=== PATIENT | male | born 2000 | race Caucasian/White ===

== ENCOUNTER 2023-12-23 20:06 | Observation (INO) ==
[2023-12-23 21:10] LABS: Basophils # (auto) 0.08 K/uL (0.00-0.20); Basophils % (auto) 0.8 %; Eosinophils # (auto) 0.26 K/uL (0.00-0.50); Eosinophils % (auto) 2.8 %; Hematocrit (blood only) 47.2 % (42.0-52.0); Hemoglobin 16.5 g/dl (14.0-18.0); Immature Granulocytes # (auto) 0.07 K/uL (0.01-0.20); Immature Granulocytes % (auto) 0.7 %; Lymphocytes # (auto) 2.21 K/uL (1.20-3.40); Lymphocytes % (auto) 23.4 %; Mean Corpuscular Hemoglobin 30.1 pg (25.0-34.0); Mean Corpuscular Volume 86.1 fL (80.0-100.0); Mean Platelet Volume 10.9 fL (9.4-12.4); Monocytes # (auto) 0.76 K/uL (0.11-0.59); Neutrophils # (auto) 6.07 K/uL (1.40-6.50); Neutrophils % (auto) 64.3 %; Platelet Count 253 K/uL (130-400); RDW Coefficient of Variation 12.1 % (11.5-14.5); RDW Standard Deviation 38.3 fL (36.4-46.3); Red Blood Count 5.48 M/uL (4.70-6.10); White Blood Count 9.45 K/ul (4.8-10.8)
--- NOTE | 2023-12-23 21:12 | Emergency Department Note ---
History of Present Illness General Chief complaint: Infection Stated complaint: CELLULITIS ON LT RING FINGER Time Seen by Provider: 12/23/23 20:50 History of Present Illness Maximum Pain Intensity: 4 This is a 23-year-old male who presents to the emergency department via private vehicle with complaints of "cellulitis on the left ring finger". He is right- hand dominant. Patient notes that he was here in the ED and had a laceration repaired via sutures. He notes he was doing well until about 2-3 days ago. He began with swelling and redness as well as drainage from the left fourth digit. He denies any additional trauma or injury. He notes a yellowish-pink fluid oozing from the wound. Current pain 2/10. However he notes that just prior to arrival when he was at [facility] they attempted to remove a suture and the pain was a 9/10. Current pain 4/10. Patient denies any pertinent past medical history, surgeries or allergies. No current antibiotic use. Patient referred today by [facility]. Home Medications Medication Instructions Recorded Confirmed Type No Known Home Medications 12/23/23 12/23/23 History Allergies Allergy/AdvReac Type Severity Reaction Status Date / Time pollen extracts Allergy Intermediate ITCHY Verified 12/23/23 21:56 EYES, SNEEZING, CONGESTION Past Med/Surg History Medical History No pertinent past medical history Surgical History No pertinent past surgical history Social History Smoking Status: Current every day smoker Tobacco Type: E-cigarettes / Vaping Preferred Language: Macedonian Feels Safe at Home: Yes Review of Systems A total of 10 systems reviewed and were otherwise negative Physical Exam Vital Signs Vital Signs - 24 hr 12/23/23 20:30 12/23/23 21:21 12/23/23 22:51 Temperature 37.4 C Temperature Source Temporal Artery Scan Pulse Rate 73 68 Pulse Rate [Finger] 76 Pulse Rhythm [Finger] Regular Pulse Strength [Finger] Normal Respiratory Rate 16 20 Respiratory Effort / Characteristics Non-Labored Spontaneous Non-Labored Spontaneous Respiratory Depth Normal Normal Blood Pressure 169/95 H Blood Pressure [Right Arm] 178/80 H Blood Pressure Mean 119 Blood Pressure Mean [Right Arm] 112 Blood Pressure Position Sitting Blood Pressure Position [Right Arm] Sitting Pulse Oximetry 97 99 Oxygen Delivery Method Room Air Room Air Sepsis Recent Fever Within 48 Hours No Sepsis New/Unexplained Change in Mental Status N/A Sepsis Action Taken by Nursing No Action Required VITAL SIGNS - Vital signs and nursing notes were reviewed. Hypertensive, otherwise stable and afebrile. GENERAL -23-year-old male appearing his stated age who is in no acute distress. Communicates well with provider and answers questions appropriately. SKIN -distal aspect of the left fourth digit in a curvilinear distribution on the finger pad reveals a sutured wound with small amount of overlying scabbing. There is circumferential edema and erythema to the distal left fourth digit extending just distal to the PIP joint. The sutured wound does have evidence of purulence just deep to the sutures as evidenced by a yellowish hue in what appeared to be small pockets. HEAD - NC/AT. EYES - Sclera anicteric. NECK - No nuchal rigidity. LUNGS - CTA CARDIAC - RRR EXTREMITIES -left fourth digit skin as above. Patient is tender throughout the flexor tendon region overlying the finger pad of left fourth digit extending through the DIP joint and into the space between the PIP and DIP joint on the volar aspect. Patient is not able to flex at the left fourth digit DIP joint actively. He is able to extend at the left fourth digit. He is exquisitely tender overlying the wound of the left fourth digit. There is a small amount of purulence at the sutured region. There is no crepitus. No necrosis. Capillary refill of the left fourth digit within normal limits. NEUROLOGIC -patient is neurovascularly intact throughout the left fourth digit without deficit PSYCH - A&O, and cooperates fully with examiner. Pt is very pleasant and interacts well with examiner. Course Administered Medications Acetaminophen (Acetaminophen 325 Mg Tab) 650 mg PO Q4H PRN PRN Reason: pain/fever Stop: 01/22/24 23:10 Last Admin: 12/23/23 23:40 Dose: 650 mg Documented By: MADDY Discontinued Medications Ceftriaxone Sodium (Rocephin) 2,000 mg in 50 mls @ 100 mls/hr IV NOW STA Stop: 12/23/23 22:38 Last Infusion: 12/23/23 23:45 Dose: Infused Documented By: Admin: 12/23/23 22:45 Dose: 100 mls/hr Documented By: KAMILLA Ibuprofen (Ibuprofen 600 Mg Tab) 600 mg PO ONE STA Stop: 12/23/23 23:37 Last Admin: 12/24/23 00:31 Dose: 600 mg Documented By: MARLENE Medical Decision Making Laboratory Data 12/23/23 20:48 12/23/23 20:48 Lab Results 12/23/23 Range/Units 20:48 WBC 9.45 (4.8-10.8) K/ul RBC 5.48 (4.70-6.10) M/uL Hgb 16.5 (14.0-18.0) g/dl Hct 47.2 (42.0-52.0) % MCV 86.1 (80.0-100.0) fL MCH 30.1 (25.0-34.0) pg MCHC 35.0 (32.0-36.0) g/dL RDW Std Deviation 38.3 (36.4-46.3) fL RDW Coeff of Antonio 12.1 (11.5-14.5) % Plt Count 253 (130-400) K/uL MPV 10.9 (9.4-12.4) fL Immature Gran % (Auto) 0.7 % Neut % (Auto) 64.3 % Lymph % (Auto) 23.4 % Haines % (Auto) 8.0 % Eos % (Auto) 2.8 % Baso % (Auto) 0.8 % Neut # (Auto) 6.07 (1.40-6.50) K/uL Lymph # (Auto) 2.21 (1.20-3.40) K/uL Haines # (Auto) 0.76 H (0.11-0.59) K/uL Eos # (Auto) 0.26 (0.00-0.50) K/uL Baso # (Auto) 0.08 (0.00-0.20) K/uL Immature Gran # (Auto) 0.07 (0.01-0.20) K/uL Sodium 140 (136-145) mmol/L Potassium 4.0 (3.5-5.1) mmol/L Chloride 107 (98-107) mmol/L Carbon Dioxide 27 (21-32) mmol/L Anion Gap 6 (3-11) BUN 14 (6-23) mg/dl Creatinine 1.01 (0.6-1.4) mg/dl Est Cr Clr Drug Dosing 134.5 ml/min Est GFR ( Amer) 122.7 ml/min Est GFR (Non-Af Amer) 105.8 ml/min BUN/Creatinine Ratio 13.9 (10-20) Glucose 93 (70-99(Fasting)) mg/dl Calcium 9.3 (8.6-10.3) mg/dl Total Bilirubin 0.4 (0.2-1.0) mg/dl AST 22 (13-39) U/L ALT 27 (7-52) U/L Alkaline Phosphatase 87 (34-104) U/L Total Protein 6.8 (6.0-8.3) gm/dl Albumin 4.5 (3.4-5.0) gm/dl Globulin 2.3 L (2.5-4.0) gm/dl Albumin/Globulin Ratio 2.0 (0.9-2) Imaging Data My Impression: Left fourth digit edematous at the distal aspect. No radiopaque foreign body. No fracture or dislocation. No erosions. MDM Narrative Patient was seen and evaluated as above in room C08. Review was performed of triage nursing notes and vital signs. I did review pertinent previous visits and patient history. After obtaining a thorough history and physical examination the above work up was performed. Patient presents to us today for evaluation of an infection to the left fourth digit. This is at the location of a repaired wound with sutures in place. Options of care were discussed with the patient. IV access was established. Labs were drawn. No leukocytosis or concerning anemia. No emergent metabolic disturbance. X-ray was obtained. Per my interpretation: Left fourth digit edematous at the distal aspect. No radiopaque foreign body. No fracture or dislocation. No erosions. The formal radiology report will be available in the a.m. There is a small amount of purulence emanating from the wound channel which was obtained. I did order IV ceftriaxone for coverage of the infection. At 10:10 PM on 05/21/[address] Jackson of orthopedics. At this time we will proceed with inpatient management and IV antibiotics. He will see the patient in the a.m. Recommendation was to remove the sutures. Consent was obtained from the patient. Area was cleansed with sterile saline and dried with sterile gauze. Sutures were removed. Patient respectfully declined pain medication. Large amount of purulence poured from the wound when the sutures were removed. Area then further cleansed with sterile saline. Area was then dried with sterile gauze. Single-layer sterile Adaptic dressing was applied followed by sterile gauze. Care was taken so as not apply too tightly. Additional culture was sent and is to replace the first sample. Case discussed with the hospitalist service. Please refer to further documentation regarding his stay. Additional antibiotic therapy per hospitalist service. While in the department, I personally reevaluated the patient and the patient was found to be resting comfortably. The patient was educated upon management, educated upon todays findings/results, educated upon importance of follow up from today's visit, educated upon symptoms in which to return, had questions answered prior to discharge, verbalized understanding, and was discharged home in good condition. GCS: 15 In the evaluation and treatment of this patient the following differential diagnoses were entertained: Cellulitis, abscess, felon, paronychia, among others. Impression & Plan Cellulitis of finger of left hand, Infection involving suture with abscess Discharge Plan Visit Data Chief Complaint: Infection Stated Complaint: CELLULITIS ON LT RING FINGER ED Provider: Ilda Calixto ED Midlevel Provider: Mark Rolon Discharge Problem: Cellulitis of finger of left hand, Infection involving suture with abscess Patient Disposition: Admitted As Inpatient Condition: Good Discharge Instructions Interventions: ED Discharge Assessment Last Done: 12/24/23 00:16
[2023-12-23 21:24] LABS: Albumin Level 4.5 gm/dl (3.4-5.0); BUN Creatinine Ratio 13.9 (10-20); Bilirubin,Total 0.4 mg/dl (0.2-1.0); Calcium 9.3 mg/dl (8.6-10.3); Creatinine Clr Calc Pharmacy 134.5 ml/min; Est GFR (African American) 122.7 ml/min; Est GFR (Non-African American) 105.8 ml/min; Globulin 2.3 gm/dl (2.5-4.0); Total Protein 6.8 gm/dl (6.0-8.3)
[2023-12-23] MEDS: cefTRIAXone SODIUM 2,000 MG/50 ML BAG IV STA (22:45)
--- NOTE | 2023-12-23 22:57 | History & Physical Report ---
Date of Service December 23, 2023 Assessment & Plan (1) Cellulitis of finger of left hand: Plan: Pt is a 23 yo male with no significant PMH presenting to the ER due to referral from [facility]. Left finger cellulitis - pt hemodynamically stable; no leukocytosis - all lab work WNL - finger xray unchanged from prior (12/12/2023) by my read - wound culture pending - s/p ceftriaxone given in ED; will continue coverage with cefazolin pending culture results - ortho consulted for further evaluation Diet: NPO at midnight VTE ppx: low risk; ambulation Code: full Dispo: med/surg History of Present Illness Chief Complaint: left finger infection Primary Care Provider: [facility] Pt is a 23 yo male with no significant PMH presenting to the ER due to referral from [facility]. Pt was recently seen in the ED 12/12/2023 for a left finger injury after a fall. He cut his finger on a piece of glass. He received 9 sutures at that time. He was offered antibiotics but did not take them at that time. He thought he would be able to keep the wound clean. Over the last few days, he started to notice his finger becoming infected. The wound became red and inflamed locally. It was also painful with flexion/pressure of his DIP joint. Yesterday, he noticed the wound start to leak clear/pink fluid. He denies any other symptoms. No nausea, vomiting, fevers, or chills. Allergies Allergy/AdvReac Type Severity Reaction Status Date / Time pollen extracts Allergy Intermediate ITCHY Verified 12/23/23 21:56 EYES, SNEEZING, CONGESTION Home Medications Medication Instructions Recorded Confirmed Type No Known Home Medications 12/23/23 12/23/23 History Past Med/Surg History Medical History No pertinent past medical history Surgical History No pertinent past surgical history Social History Smoking Status: Current every day smoker Tobacco Type: E-cigarettes / Vaping Hx Alcohol Use: Yes Hx Substance Use: No Preferred Language: Swazi Communication Ability: Effective Surgery Manager Required: No Current Living Situation: Other Current Living Situation Comment: lives in house with roommates Feels Safe at Home: Yes Safety Concerns: Feels Safe At This Time Assistive Devices: None Review of Systems Review of Systems: as per HPI Physical Exam Physical Exam: Constitutional: well appearing, no acute distress HEENT: normocephalic, no conjunctival injection CV: RRR, no murmur, no LE edema Respiratory: CTA bilaterally. No rhonchi, wheezes, or crackles. No increased work of breathing GI: soft, nondistended, nontender, + bowel sounds MSK: no gross deformities noted; refer to ER note for pictures of current left finger infection Skin: warm, dry, no rashes Neuro: alert, oriented, no FND noted Psych: mood and affect congruent Results & Data Results & Data Vital Signs (Past 12 Hours) Vital Signs Temp Pulse Pulse Resp BP BP Pulse Ox 12/23/23 22:51 76 20 178/80 H 99 12/23/23 21:21 68 12/23/23 20:30 37.4 C 73 16 169/95 H 97 O2 Del Method 12/23/23 22:51 Room Air 12/23/23 21:21 12/23/23 20:30 Room Air Supervising Physician Co-Signing Physician Notes Attending addendum: I have physically seen this patient, have supervised the medical residents activities, and agree with the H&P unless as otherwise noted. Assessment and Plan: Left fourth finger cellulitis- No suggestion of osteomyelitis on x-ray Wound culture and sensitivity pending Status post ceftriaxone given in the ED Continuing coverage with cefazolin IV Orthopedic surgery consult by the ED has already been performed N.p.o. after midnight for possible procedure in the a.m. Resident Activity Tracking Resident Involvement: Resident Care Provided Care Provided: Adult [facility] Medicine
[2023-12-23] MEDS ORDERED: MELATONIN 3 MG TAB PO PRN (23:11)
[2023-12-23] MEDS ORDERED: ONDANSETRON INJ 2 MG/ML 2 ML VIAL IV PRN (23:11)
[2023-12-23] MEDS: ACETAMINOPHEN 325 MG TAB PO PRN (23:40)
[2023-12-24] MEDS: IBUPROFEN 600 MG TAB PO STA (00:31)
[2023-12-24] MEDS: IBUPROFEN 600 MG TAB PO SCH (06:09)
--- NOTE | 2023-12-24 06:55 | XRay Report ---
LEFT FOURTH FINGER 3 VIEWS CLINICAL HISTORY: Fourth digit infection. FINDINGS: 3 views of the left fourth finger are compared to study dated 12/12/2023. The skeletal struc tures are well mineralized. No fracture is seen. The joint spaces are maintained. There is no bony er osion. Soft tissue swelling is noted in the distal fourth finger. A wound is seen in the distal finge r. There are tiny foci of soft tissue gas. No radiodense foreign body is identified. IMPRESSION: 1. No acute bony abnormality is identified. 2. Soft tissue edema and soft tissue gas is seen in the tip of the fourth finger with evidence of a w ound. Electronically signed by: Boni Temple M.D. 12/24/2023 6:54 AM
[2023-12-24 07:32] LABS: Hemoglobin 15.4 g/dl (14.0-18.0); Mean Corpuscular Hemoglobin 29.5 pg (25.0-34.0); Mean Corpuscular Hgb Conc 33.5 g/dL (32.0-36.0); Mean Corpuscular Volume 88.1 fL (80.0-100.0); Mean Platelet Volume 10.8 fL (9.4-12.4); Platelet Count 206 K/uL (130-400); RDW Coefficient of Variation 12.2 % (11.5-14.5); RDW Standard Deviation 39.2 fL (36.4-46.3); Red Blood Count 5.22 M/uL (4.70-6.10); White Blood Count 6.81 K/ul (4.8-10.8)
[2023-12-24 07:50] LABS: BUN Creatinine Ratio 15.6 (10-20); Creatinine Clr Calc Pharmacy 141.5 ml/min; Est GFR (African American) 130.4 ml/min; Est GFR (Non-African American) 112.5 ml/min; Potassium 3.8 mmol/L (3.5-5.1)
--- NOTE | 2023-12-24 10:22 | Orthopedic Consultation ---
Date of Service December 24, 2023 Assessment & Plan (1) Infection involving suture with abscess: 1. Recommend no surgical I&D of the left ring finger 2. Patient seems to be responding to the ABX appropriately. Continue with current ABX plan pending culture results 3. Change dressings regularly 4. No follow up with orthopedics is necessary I, Dr. Carmelo Jackson, saw and examined the patient at bedside. I agree with the above plan. History of Present Illness Reason for Consultation: . Requesting Physician: . Attending Physician: Gisel Bernal MD Pt is a 23 yo male with no significant PMH presenting to the ER due to referral from [facility]. Pt was recently seen in the ED 12/12/2023 for a left finger injury after a fall. He cut his finger on a piece of glass. He received 9 sutures at that time. He was offered antibiotics but did not take them at that time. He thought he would be able to keep the wound clean. Over the last few days, he started to notice his finger becoming infected. The wound became red and inflamed locally. It was also painful with flexion/pressure of his DIP joint. Yesterday, he noticed the wound start to leak clear/pink fluid. At bedside today he is comfortable. The dressing is intact with no blood or fluid leaking through the dressing. Allergies Allergy/AdvReac Type Severity Reaction Status Date / Time pollen extracts Allergy Intermediate ITCHY Verified 12/23/23 21:56 EYES, SNEEZING, CONGESTION Home Medications Medication Instructions Recorded Confirmed Type No Known Home Medications 12/23/23 12/23/23 History Past Med/Surg History Medical History No pertinent past medical history Surgical History No pertinent past surgical history Social History Smoking Status: Current every day smoker Tobacco Type: E-cigarettes / Vaping Hx Alcohol Use: Yes Hx Substance Use: No Preferred Language: Malian Communication Ability: Effective Direct Service Provider Required: No Current Living Situation: Other Current Living Situation Comment: lives in house with roommates Feels Safe at Home: Yes Safety Concerns: Feels Safe At This Time Assistive Devices: None Review of Systems All systems reviewed & are unremarkable except as noted in HPI & below. Physical Exam Removed the dressing from left ring finger. No pain was palpable at the PIP and DIP joint of the finger. Localized erythema around the laceration site. Was able to express 2-3 ml of thick, clear fluid from the wound. Neurovascularly intact Results & Data Results & Data Laboratory Results . Diagnostic Findings . PG Care Time/CCT Total # of Minutes Spent Total Time Spent with Patient: Total time spent is greater than 50% in coordination of care (as documented) at patient's floor/unit and/or counseling patient: Coding Level of Care Code 35333 IN/OBS CONSULT LVL 3,45M Diagnoses Infection involving suture with abscess T81.41XA
[2023-12-24] MEDS: LACTATED RINGER'S 1,000 ML IV SCH (10:45)
--- NOTE | 2023-12-24 15:33 | Hospitalist Progress Note ---
Date of Service December 24, 2023 Assessment & Plan (1) Cellulitis of finger of left hand: Plan: Pt is a 23 yo male with no significant PMH presenting to the ER due to referral from [facility]. Left finger cellulitis - pt hemodynamically stable; no leukocytosis - all lab work WNL - finger xray unchanged from prior (12/12/2023) - wound culture growing Staph, sensitivities pending - s/p ceftriaxone given in ED; will continue coverage with cefazolin pending sensitivities - ortho consulted for further evaluation - if continued improvement hope for transition to PO antibiotics tomorrow with goal of d/c Admission and Anticipated Discharge Date Admission Date: December 23, 2023 Supervising Physician Co-Signing Physician Notes Attending Physician Supervision Note: I independently interviewed and examined the patient and verified the yip history and physical, reviewed labs and image studies and agree with findings and care plan noted above. Left ring finger cellulitis- responding well to IV abx. ortho recommends continue iv abx - no I and D needed. -await culture results. anticipate d/c home in am after cx results. Subjective Pt states that pain is improving in finger. Notes that he is hungry as he has been NPO, but otherwise no complaints. Review of Systems Review of Systems: as per above Physical Exam Physical Exam: Constitutional: well appearing, no acute distress HEENT: normocephalic, no conjunctival injection CV: RRR, no murmur, no LE edema Respiratory: CTA bilaterally. No rhonchi, wheezes, or crackles. No increased work of breathing GI: soft, nondistended, nontender MSK: no gross deformities noted; refer to ER note with picture of finger on admission, mildly improved today Skin: warm, dry, no rashes Neuro: alert, oriented, no FND noted Psych: mood and affect congruent Results & Data Results & Data Vital Signs (Past 12 Hours) Vital Signs Temp Pulse Resp BP Pulse Ox O2 Del Method 12/24/23 07:45 36.3 C L 51 L 18 120/64 98 Room Air 12/24/23 03:45 Room Air Resident Activity Tracking Resident Involvement: Resident Care Provided Care Provided: Adult Hospital Medicine
[2023-12-24] MEDS: ceFAZolin 2000MG 2,000 MG/15 ML SYR IV SCH (19:41)
--- NOTE | 2023-12-24 21:26 | Billing Data ---
Date of Service December 24, 2023 Coding Level of Care Code 98483 INT INP/OBS CARE
[2023-12-24] MEDS ORDERED: ceFAZolin 2000MG 2,000 MG/15 ML SYR IV SCH (22:00)
[2023-12-25 07:42] LABS: Basophils # (auto) 0.06 K/uL (0.00-0.20); Basophils % (auto) 1.1 %; Eosinophils # (auto) 0.25 K/uL (0.00-0.50); Eosinophils % (auto) 4.5 %; Hematocrit (blood only) 46.3 % (42.0-52.0); Hemoglobin 15.4 g/dl (14.0-18.0); Immature Granulocytes # (auto) 0.06 K/uL (0.01-0.20); Immature Granulocytes % (auto) 1.1 %; Lymphocytes # (auto) 1.41 K/uL (1.20-3.40); Lymphocytes % (auto) 25.2 %; Mean Corpuscular Hemoglobin 29.3 pg (25.0-34.0); Mean Corpuscular Hgb Conc 33.3 g/dL (32.0-36.0); Mean Corpuscular Volume 88.2 fL (80.0-100.0); Monocytes # (auto) 0.59 K/uL (0.11-0.59); Monocytes % (auto) 10.5 %; Neutrophils # (auto) 3.23 K/uL (1.40-6.50); Neutrophils % (auto) 57.6 %; Platelet Count 196 K/uL (130-400); RDW Coefficient of Variation 12.1 % (11.5-14.5); RDW Standard Deviation 39.4 fL (36.4-46.3); Red Blood Count 5.25 M/uL (4.70-6.10)
[2023-12-25 08:22] LABS: BUN Creatinine Ratio 16.5 (10-20); Calcium 8.7 mg/dl (8.6-10.3); Creatinine Clr Calc Pharmacy 140.1 ml/min; Est GFR (African American) 128.8 ml/min; Est GFR (Non-African American) 111.1 ml/min; Potassium 4.1 mmol/L (3.5-5.1)
--- NOTE | 2023-12-25 11:39 | Discharge Summary ---
Date of Service December 25, 2023 Admission HPI Per Admitting Provider Pt is a 23 yo male with no significant PMH presenting to the ER due to referral from [facility]. Pt was recently seen in the ED 12/12/2023 for a left finger injury after a fall. He cut his finger on a piece of glass. He received 9 sutures at that time. He was offered antibiotics but did not take them at that time. He thought he would be able to keep the wound clean. Over the last few days, he started to notice his finger becoming infected. The wound became red and inflamed locally. It was also painful with flexion/pressure of his DIP joint. Yesterday, he noticed the wound start to leak clear/pink fluid. He denies any other symptoms. No nausea, vomiting, fevers, or chills. Admission Exam Per Admitting Provider Constitutional: well appearing, no acute distress HEENT: normocephalic, no conjunctival injection CV: RRR, no murmur, no LE edema Respiratory: CTA bilaterally. No rhonchi, wheezes, or crackles. No increased work of breathing GI: soft, nondistended, nontender, + bowel sounds MSK: no gross deformities noted; refer to ER note for pictures of current left finger infection Skin: warm, dry, no rashes Neuro: alert, oriented, no FND noted Psych: mood and affect congruent Principal Diagnosis Cellulitis Discharge Exam Constitutional: well appearing, no acute distress HEENT: normocephalic, no conjunctival injection CV: RRR, no murmur, no LE edema Respiratory: CTA bilaterally. No rhonchi, wheezes, or crackles. No increased work of breathing GI: soft, nondistended, nontender MSK: no gross deformities noted; refer to ER note with picture of finger on admission, mildly improved today Skin: warm, dry, no rashes Neuro: alert, oriented, no FND noted Psych: mood and affect congruent Discharge Data Allergies Allergy/AdvReac Type Severity Reaction Status Date / Time pollen extracts Allergy Intermediate ITCHY Verified 12/23/23 21:56 EYES, SNEEZING, CONGESTION Consultations 12/23/23 22:27 ED Decision to Admit Stat 12/23/23 23:11 Consult Orthopedic Surgery Routine Hospital Course (1) Cellulitis of finger of left hand: Pt is a 23 yo male with no significant PMH presenting to the ER due to referral from [facility]. Left finger cellulitis - recent finger injury from glass with suture placement - admitted for redness/swelling. sutures removed in the ED. - finger xray unchanged from prior (12/12/2023) - wound culture growing MSSA - recieved ceftriaxone and cefazolin in hospital - ortho consulted, continue abx no debridement needed - will prescribe Keflex 500mg QID for 5 days in outpatient - outpatient f/u at [facility] Total Time Total Time Spent Total Time Spent (In Minutes): see attending attestation Discharge Plan Discharge Items Patient Disposition: Home - Self-Care Reason For Visit: LEFT FINGER INFECTION Discharge Diagnosis: Cellulitis Condition on Discharge: Good Activity: Resume your previous activity Non-emergency contact: Primary Care Provider Call non-emergency contact if: your symptoms worsen, your pain is concerning for you and you have a fever Follow-up/Referrals: [facility] [Primary Care Provider] - Diet: Regular Addtl Attending Provider Instructions: You were admitted to the hospital for cellulitis of your finger. You were treated with antibiotics and your symptoms improved. Please complete your course of antibiotics. Please remember to get the stitches of your finger removed up to 14 days after they were placed. A discharge summary will be sent to your primary care physician to ensure continuity of care. Please bring this discharge summary with you to your next office appointment so that your provider can review it at that time. Follow-up appointments: Make a follow-up appointment with your PCP within the next week. It is very important that you follow up with them shortly after discharge from the hospital. Keep all your follow-up appointments as already scheduled. If you cannot make an appointment, notify your provider. Medications: Your medication list has been reviewed and reconciled upon discharge to ensure accuracy and continuity of care. An updated list of all your medications is included with your hospital discharge paperwork. Please review this list closely, and make note of any changes. * We sent a new medication called Keflex to your pharmacy. Take Keflex 500mg one tablet four times a day for 5 days Take your medications as instructed; do not skip a dose of your medicines. Make sure all of your doctors know every medicine you are taking (including [id number] medicines, vitamins, and supplements). Call your primary care provider before taking any new medicines (including qkfx-[id number]-[id number] medicines, vitamins, and supplements), because some of these may interact with your current medications, or may make your symptoms worse. Tell your primary care provider if you cannot afford your medications. CONTACT YOUR PRIMARY CARE PROVIDER if you experience any of the following: Increased pain bleeding or discharge of your finger Increased redness around your hand, or new fever Difficulty following your treatment plan, or difficulty taking medications CALL 911 OR GO TO THE EMERGENCY DEPARTMENT if you experience any of the following: Sudden, severe abdominal pain or nausea/vomiting Severe chest pain, or chest pain that radiates (moves) to your jaw or arm Sudden, severe shortness of breath or difficulty breathing Thank you for allowing us to participate in your care. Pending Studies at Discharge: No Stand-Alone Forms: My [facility] [employer]ORT, Smoking Cessation Medications and DC Order Prescriptions: New cephalexin 500 mg capsule 500 mg PO QID 5 Days Qty: 20 0RF Discharge Orders: Discharge Order (Routine); Ordered 12/25/23 Ordered By: Janki Pinto/Other Patient Handouts: ED Hand Laceration- All Closures Admission Data Admit Date/Time: 12/23/23 23:12 Attending Provider: Gisel Bernal Admit Provider: Mely Vasquez Primary Care Provider: [facility] Other Providers: Leighton Marquze; Carmelo Jackson Other Interventions: Discharge Summary Assessment (RN) Last Done: 12/25/23 11:48 Supervising Physician Co-Signing Physician Notes Attending Physician Supervision Note: I independently interviewed and examined the patient and verified the yip history and physical, reviewed labs and image studies and agree with findings and care plan noted above. Resident Activity Tracking Resident Involvement: Resident Care Provided Care Provided: Adult Hospital Medicine
--- NOTE | 2023-12-28 10:48 | Pharmacy Report ---
ED Pharmacist Progress Note - ED Pharmacist Progress Note Date of Service:: December 28, 2023 Notes:: L ring finger PRELIMINARY cx results received in the ED today. [facility]. Culture result was forwarded to Dr Henry for review.
== END 2023-12-25 12:24 | disposition home or self-care (01) | DRG 863 ==
LOC: ED 20:06 → 3N 23:12 → INTOOBSV 23:12 → SUATTDRO 23:12 → 3N 12-24 00:16